=== PATIENT | male | born 1975 | race Caucasian/White ===

== ENCOUNTER 2023-02-26 07:24 | Outpatient (CLI) | payer BC, SELFPAY | END 2023-02-26 07:25 | disposition home or self-care (01) | LOC: NFLDREF 19:04 | PROVIDERS: PCP Physician Assistant Medical; Referring Provider Physician Assistant Medical; Visit Provider Physician Assistant Medical | DX: Z00.00 Encounter for general adult medical examination without abnormal findings (principal); Z13.6 Encounter for screening for cardiovascular disorders; Z13.29 Encounter for screening for other suspected endocrine disorder | CPT/HCPCS: 80053; 80061; 84443 ==

== ENCOUNTER 2023-04-28 08:44 | Outpatient (CLI) | payer BC, SELFPAY ==
--- NOTE | 2023-04-28 07:59 | W.ANESCHARGE ---
Anesthesia Charges Start Date/Time Anesthesia Start Date: 04/28/23 Anesthesia Start Time: 10:12 Stop Date/Time Anesthesia Stop Date: 04/28/23 Anesthesia Stop Time: 10:42
--- NOTE | 2023-04-28 10:43 | W.ANESCHARGE ---
Anesthesia Charges Start Date/Time Anesthesia Start Date: 04/28/23 Anesthesia Start Time: 10:12 Stop Date/Time Anesthesia Stop Date: 04/28/23 Anesthesia Stop Time: 10:42
--- NOTE | 2023-04-28 11:41 | W.ANESCHARGE ---
Anesthesia Charges Start Date/Time Anesthesia Start Date: 04/28/23 Anesthesia Start Time: 10:12 Stop Date/Time Anesthesia Stop Date: 04/28/23 Anesthesia Stop Time: 10:42
== END 2023-04-28 08:45 | disposition home or self-care (01) ==
LOC: OP CLINIC 08:45
PROVIDERS: PCP Physician Assistant Medical; Visit Provider Surgery
DX: Z12.11 Encounter for screening for malignant neoplasm of colon (principal); K63.5 Polyp of colon
CPT/HCPCS: 00811; 45385; 88305; J2704